=== PATIENT | male | born 1965 | race African-American/Black ===

== ENCOUNTER 2016-07-23 05:56 | Inpatient (IN) | payer BC ==
--- NOTE | 2016-07-22 09:24 | HP ---
[facility]ellite [facility] - Chief Complaint Chief Complaint: left hip pain - Past Medical History Allergies/Adverse Reactions: Allergies Allergy/AdvReac Type Severity Reaction Status Date / Time No Known Drug Allergies Allergy Verified 11/21/15 18:15 - Current Medications Current Medications: Home Medications Medication Instructions Recorded Celecoxib [Celebrex] 50 mg PO PRN PRN 11/21/15 Olmesartan/Hydrochlorothiazide 1 each PO DAILY 11/21/15 [Benicar Hct 40-25 mg Tablet] Hydrocodone Bit/Acetaminophen 1 tab PO Q6H PRN 07/19/16 [Vicodin 5/300 mg -] Satellite Physical Exam - Physical Examination General Appearance: Well Nourished, Well Developed, Alert & Oriented x3 ENT: Clear Lung: Normal air movement Heart: Regular rate & rhythm Extremities: Other (left hip- +ttp, decr rom, nvi xrays show severe hip djd) Neurological: Intact, Alert, Oriented Satellite Impression/Plan - Impression/Plan Impression: left hip djd Operative Procedure: left vicente thr Date to be Performed: 07/23/16
[2016-07-23] MEDS ORDERED: MIDAZOLAM HCL 2 MG/2 ML SINGLE DOSE VIAL ONE (06:29)
[2016-07-23] MEDS ORDERED: DEXAMETHASONE SOD PHOSPHATE/PF 10 MG/ML SDV ONE (06:29)
[2016-07-23] MEDS ORDERED: ROPIVACAINE HCL 0.5% 30ML VIAL ONE (06:30)
[2016-07-23] MEDS ORDERED: CELECOXIB 200 MG CAPSULE PO ONE (06:31)
[2016-07-23] MEDS ORDERED: GABAPENTIN 300 MG CAPSULE (FP) PO ONE (06:31)
[2016-07-23] MEDS ORDERED: TRANEXAMIC ACID 1000 MG/10 ML VIAL IVPUSH ONE (06:31)
[2016-07-23] MEDS ORDERED: oxyCODONE HCL 10 MG SUSTAINED ACTING TABLET PO ONE (06:31)
[2016-07-23] MEDS ORDERED: CEFAZOLIN 2 GM in DEXTROSE 5%-WATER - 50 ML IVPB ONE (06:31)
[2016-07-23 06:59] VITALS: BMI 30.3
[2016-07-23] MEDS ORDERED: ceFAZolin SODIUM 1 GM VIAL ONE (07:09)
[2016-07-23] MEDS ORDERED: VANCOMYCIN 1,000 MG VIAL (RESTRICTED TO ID ONLY) ONE (07:10)
[2016-07-23] MEDS ORDERED: ePHEDrine SULFATE 50 MG/1 ML AMPULE ONE (07:35)
[2016-07-23] MEDS ORDERED: SUCCINYLCHOLINE CHLORIDE 200 MG/10 ML VIAL ONE (07:36)
[2016-07-23] MEDS ORDERED: PROPOFOL 20 ML ONE ×6 (07:36)
[2016-07-23] MEDS ORDERED: BUPIVACAINE HCL/PF 0.5% (5MG/ML) 10 ML VIAL ONE (07:39)
[2016-07-23] MEDS ORDERED: VANCOMYCIN 1,000 MG VIAL (RESTRICTED TO ID ONLY) IVPB ONE (09:15)
--- NOTE | 2016-07-23 09:41 | OP ---
Operative Note - Note: Operative Date: 07/23/16 (marielle) Pre-Operative Diagnosis: left hip djd Operation: left vicente thr Post-Operative Diagnosis: Same as Pre-op Surgeon: Angelo Correia Director Of Strategic Communications: Burton Daily) Anesthesiologist/COUNTER STACKER: Ambrocio Ravi Anesthesia: Spinal, Local Specimens Removed: femoral head Estimated Blood Loss (mls): 100 Operative Report Dictated: Yes
[2016-07-23] MEDS ORDERED: PATIENT'S OWN MEDICATION (NON-FORMULARY) (Olmesartan/Hydrochlorothiazide [Benicar Hct 40-2 PO SCH (10:00)
[2016-07-23] MEDS ORDERED: PANTOPRAZOLE 40 MG TABLET (FP) PO SCH (10:00)
[2016-07-23] MEDS ORDERED: MULTIVITAMINS (DAILY MVI) TABLET (FP) PO SCH (10:00)
[2016-07-23 11:05] LABS: HIV 1 & 2 AB NEGATIVE; HIV 1 AGp24 NEGATIVE
[2016-07-23] MEDS ORDERED: MAG HYDROX/AL HYDROX/SIMETH 30 ML UNIT-DOSE CUP PO PRN (11:17)
[2016-07-23] MEDS ORDERED: MAGNESIUM HYDROX 2400MG/30ML ORAL SUSPENSION 30 ML CUP PO PRN (11:21)
[2016-07-23] MEDS ORDERED: ONDANSETRON 4 MG/2 ML VIAL IVPB PRN (11:22)
[2016-07-23] MEDS ORDERED: LACTATED RINGERS SOLUTION 1,000 ML IV SCH (11:30)
[2016-07-23] MEDS ORDERED: oxyCODONE HCL 5 MG TABLET PO PRN (11:34)
[2016-07-23] MEDS: oxyCODONE HCL 5 MG TABLET PO PRN ×3 (14:53→19:48)
[2016-07-23] MEDS: ACETAMINOPHEN 325 MG TABLET (FP) PO SCH ×2 (15:46→19:48)
[2016-07-23] MEDS: CEFAZOLIN 2 GM/D5W 50 ML IVPB SCH (15:46)
[2016-07-23] MEDS: SENNOSIDES/DOCUSATE COMBO (SENNA PLUS) TABLET (UD) PO SCH (22:01)
[2016-07-23] MEDS: oxyCODONE HCL 10 MG SUSTAINED ACTING TABLET PO SCH (22:02)
[2016-07-23] MEDS: GABAPENTIN 300 MG CAPSULE (FP) PO SCH (22:02)
[2016-07-24] MEDS: CEFAZOLIN 2 GM/D5W 50 ML IVPB SCH (00:15)
[2016-07-24] MEDS: ACETAMINOPHEN 325 MG TABLET (FP) PO SCH ×2 (02:59→09:16)
[2016-07-24] MEDS: oxyCODONE HCL 5 MG TABLET PO PRN (03:13)
[2016-07-24 06:39] VITALS: BP 137/84; PULSE 82; TEMP 98
[2016-07-24] MEDS ORDERED: ASPIRIN 325 MG TABLET PO SCH (08:00)
--- NOTE | 2016-07-24 08:04 | PN ---
Progress Note (short form) - Note Progress Note: Ortho Pt seen and examined s/p left vicente thr pod #1 Selected Entries 07/24/16 06:38 Temperature 98.0 F Pulse Rate 82 Respiratory 19 Rate Blood Pressure 137/84 dressing c/d/i, calf soft, nt nvi cbc pending a/p PT dvt ppx pain control d/c home today f/u in 1 week
--- NOTE | 2016-07-24 08:05 | DS ---
Physical Examination Vital Signs: Vital Signs Temperature 98.0 F 07/24/16 06:38 Pulse Rate 82 07/24/16 06:38 Respiratory Rate 19 07/24/16 06:38 Blood Pressure 137/84 07/24/16 06:38 O2 Sat by Pulse Oximetry (%) 96 07/23/16 22:57 Discharge Summary Reason For Visit: LEFT HIP OSTEOARTHRITIS Procedures: Principal: s/p left vicente thr Hospital Course: admitted for elective left vicente thr, uneventful post-op, stable for d/c Condition: Good - Instructions Diet, Activity, Other Instructions: Post-op Instructions-Total Hip Replacement Call the office for a follow-up appointment in 1 week - [phone] Aspirin 325mg daily for 6 weeks. Pain medication was sent into your pharmacy. Apply Graduated Compression Stockings (TEDs) to both lower extremities- remove daily for hygiene ONLY Apply Sequential Compression Device (SCDs) to both Lower extremities remove for PT and hygiene ONLY Apply cold packs to affected area for 15 minutes every 2 hours. Physical Therapist will come to your home for the first 5 days. You will be set up with outpatient PT at your first post-operative visit. Patient may ambulate as tolerated-encourage self care (at least every 2-3 hours while awake) with walker or cane Maintain Aquacel (waterproof) dressing to operative wound (will be removed by surgeon at first office visit) Shower with Aquacel dressing in place-if Aquacel integrity compromised, remove and apply dry sterile dressing and notify Orthopedist. DO NOT SHOWER unless Orthopedists approves without Aquacel dressing CONTACT THE OFFICE FOR ANY CHANGE IN YOUR CONDITION (for example-fever greater than 102 degrees,excessive bleeding from operative site, purulent drainage, severe swelling or pain) GO TO THE EMERGENCY ROOM IF THERE IS A MEDICAL EMERGENCY Hip Precautions: * Keep a rolled towel under affected heel while in bed or chair (to keep knee in extension) * Dependent upon approach: * Posterior - do not cross legs; do not sit on low chairs or toilets. * If you have any questions, please do not hesitate to call the office - [phone]. Referrals: Burton Daily MD [Staff Physician] - Disposition: VNS/HOME HEALTH CARE - Home Medications Comprehensive Discharge Medication List: Ambulatory Orders Celecoxib [Celebrex] 50 mg PO PRN PRN 06/07/16 Olmesartan/Hydrochlorothiazide [Benicar Hct 40-25 mg Tablet] 1 each PO DAILY 12/29 Aspirin [ASA -] 325 mg PO DAILY@0800 tablet 07/23/16 Oxycodone HCl/Acetaminophen [Percocet 5-325 mg Tablet -] 1 - 2 tab PO Q6H #50 tab MDD 8 07/23/16
[2016-07-24 08:16] LABS: MCH 28.2 pg (25.7-33.7); MCHC 32.2 g/dl (32.0-35.9); MEAN CELL VOLUME 87.4 fl (80-96); MEAN PLT VOLUME 7.3 fl (7.5-11.1); PLATELET COUNT 187 K/MM3 (134-434); RDW 12.8 % (11.9-15.9); WHITE BLOOD COUNT 9.6 K/mm3 (4.0-10.0)
[2016-07-24 08:36] LABS: CALCIUM 8.6 mg/dl (8.4-10.2)
[2016-07-24] MEDS: GABAPENTIN 300 MG CAPSULE (FP) PO SCH (09:15)
[2016-07-24] MEDS: SENNOSIDES/DOCUSATE COMBO (SENNA PLUS) TABLET (UD) PO SCH (09:15)
[2016-07-24] MEDS: oxyCODONE HCL 10 MG SUSTAINED ACTING TABLET PO SCH (09:20)
[2016-07-24] MEDS ORDERED: VALSARTAN 160 MG TABLET (UD) PO SCH (10:00)
[2016-07-24] MEDS ORDERED: HYDROCHLOROTHIAZIDE 25 MG TABLET (FP) PO SCH (10:00)
--- NOTE | 2016-07-24 11:18 | SPEC ---
DATE OF SURGERY: 07/23/2016 PREOPERATIVE DIAGNOSIS: Degenerative Joint Disease, Left Hip POSTOPERATIVE DIAGNOSIS: Degenerative Joint disease, Left Hip PROCEDURE: Left Total Hip Replacement with Robotic Arm Navigation Assistance (Makoplasty) SURGEON: Dr. Angelo Correia VEGETABLE HARVEST MACHINE OPERATOR: ERNESTINE Middleton BUSINESS ASST: Dr. Burton Daily ANESTHESIA: Spinal and regional. ANESTHESIOLOGIST: CLOSURE: Rafiq components with a No. 58 tritanium acetabulum with a 10-degree lip polyethylene insert that accepts a 36 mm head, a No. 7 Accolade 2 femoral stem with a +0 36 mm ceramic head, No. 1 Vicryl for fascia, 0 and 2-0 subcutaneous, 3-0 Monocryl subcuticular for skin ESTIMATED BLOOD LOSS: Less Than 100 mL. COMPLICATIONS: None. CONDITION: To recovery room in stable condition. DESCRIPTION OF OPERATIVE PROCEDURE: The patient was taken to the operating room. Spinal anesthesia as well as sciatic block was administered by the anesthesiologist. The IV Kefzol and TXA were administered prophylactically prior to the case. The patient was placed in the lateral decubitus position with all prominences well-padded. An EKG pad was secured to the inferior pole of the patella for limb length calculations intraoperatively. The left hip area was prepped and draped in the usual sterile fashion. A 12.0-15.0 cm curved longitudinal incision over the posterolateral aspect of the greater trochanter was made. Hemostasis was achieved with Bovie cautery. Sharp dissection was carried down to the level of the fascia. The fascia was opened the entire length of the incision, spreading the gluteus elke fibers in the direction of their origin. A Charnley retractor was placed in this layer, and care was taken to be far away from the sciatic nerve. The short external rotators were detached off the insertion of the greater trochanter and peeled off the capsule. A posterior capsulectomy was then performed. A checkpoint was malleted into the greater trochanter. Three small stab incisions were done on the iliac crest. Through these stab incisions, threaded guide pins were drilled into the iliac crest. These pins were fastened to the Navigation array. The check point on the greater trochanter, and the EKG pad on the inferior pole of the patella were used to measure preoperative limb length and offset. The hip was then dislocated. The hip was osteotomized at the appropriate level as directed by the preoperative template. Anterior and posterior retractors were placed around the acetabulum. Circumferential labrum was excised. A checkpoint was malleted into the acetabulum superiorly. The acetabulum was then registered with the Navigation device with multiple sites within the acetabulum and around the rim of the acetabulum. I t was then confirmed popping the blue bubbles, confirming ideal position and confirmation of adequate registration with the Navigation device. Using a 48 reamer, which was decided preoperatively on the preoperative template, the robotic arm was brought into the field and was used to ream the acetabulum down to the appropriate depth with the appropriate orientation and inversion applied. After reaming, a good hemispherical bleeding surface was encountered in the acetabulum. A RAFIQ shell of the appropriate size was then malleted into place achieving excellent fit. Confirmation of the appropriate orientation and inversion was confirmed using the probe, and assuring that the acetabular cup was placed in the ideal position as templated preoperatively. A real liner was then clipped into place with a 10 degree lip in the posterior-superior quadrant. Anterior and posterior osteophytes were removed using osteotome. Next, our attention was directed to the femur. The proximal femur was opened with a box chisel, rat-tail, anchovy and serial reamers. This was done until the appropriate reamer achieved good fit and fill of the proximal femur. A trial reduction with the appropriate neck and head, as again measured from our preoperative template, was performed. Limb lengths were confirmed both visually and using the Navigation device, again measuring the inferior pole of the patella and the checkpoint of the greater trochanter. This confirmed ideal position of the femoral component, lengths and offset. The trial components were removed. The real component was malleted into place. The head was cold-welded to the Charnley and the hip was reduced. Again, the hip was found to have equal limb lengths as described previously. The hip was also taken through a range of motion and found to be stable in external rotation and extension, was stable in marked flexion, stable in adduction and internal rotation, and had a positive hang test and negative telescoping. The hip was irrigated with copious amounts of irrigation. Hemostasis was achieved. Vancomycin powder was sprinkled into the joint. A second dose of TXA was administered. The fascia was closed with No. 1 Vicryl interrupted suture, 0 and 2-0 for subcutaneous, and 3-0 Monocryl subcuticular for skin with skin glue. This was followed by an Aquacel dressing. The patient was flipped into the supine position. Bilateral SCDs and an abduction pillow were applied. X-rays showed good position of the components. The patient was awakened from anesthesia and transferred to the recovery room in stable condition. COMPLICATIONS: None. ESTIMATED BLOOD LOSS: Less than 100 mL. Jani PETTY/[id number]
--- NOTE | 2016-07-25 16:49 | PATH ---
Surgical Pathology Report Patient Name: ANGELO HOWELL Med. Rec. #: [id number] /Age/Gender: 1965 (Age: 51) / M Account: [id number] Location: [facility] MED-SURG Taken: 07/23/2016 Received: 07/23/2016 Reported: 07/25/2016 Physicians: Angelo Correia M.D. Specimen(s) Received LEFT FEMORAL HEAD Clinical History Left hip osteoarthritis Final Diagnosis BONE, LEFT FEMORAL HEAD, REPLACEMENT: DEGENERATIVE JOINT DISEASE. Electronically Signed Chris Moran M.D. Gross Description Received in formalin, labeled "left femoral head," is a 5.4 x 5.4 x 5.0 cm. femoral head with a 1 cm in length portion of femoral leg attached. The margin of resection is smooth. There is a 3.2 cm in greatest dimension area of eburnation present. The remaining articular surface is gaston-yellow and diffusely nodular and granular. The underlying trabecular bone is yellow and hard. A provider service representative section is submitted in one cassette, following decalcification. 07/24/201607/24/2016
== END 2016-07-24 11:20 | disposition home health service (06) | DRG 470 ==
LOC: FM/S 05:56
PROVIDERS: ADMIT Orthopaedic Surgery; ATTEND Orthopaedic Surgery
PROC: 8E0YXCZ Robotic Assisted Procedure of Lower Extremity (ICD-10-PCS; 2016-07-23)
PROC: 0SRB02A Replacement of Left Hip Joint with Metal on Polyethylene Synthetic Substitute, Uncemented, Open Approach (ICD-10-PCS; principal; 2016-07-23 08:30)
DX: M16.12 Unilateral primary osteoarthritis, left hip (principal); I10 Essential (primary) hypertension; F17.210 Nicotine dependence, cigarettes, uncomplicated
CPT/HCPCS: 36415; 73523-TC; 80048; 85027; 87389; 88304-TC; 88311-TC; 94010; 94760; 97116-GP; 97162-PG

== ENCOUNTER 2022-01-11 14:29 | Emergency (ER) | payer BC ==
[2022-01-11 14:52] VITALS: BP 137/87; PULSE 75; RESP 16; TEMP 98.2; BMI 28.8
[2022-01-11 15:37] LABS: EPI CELLS 3 /uL (0-25.1); HYALINE CASTS 1 /uL (0-3.1); PH,URINE 5.5 (5.0-8.0); URINE APPEARANCE CLEAR; URINE BACTERIA 2 /uL (0-1359); URINE BILIRUBIN NEGATIVE (NEGATIVE); URINE COLOR YELLOW; URINE GLUCOSE (UA) NEGATIVE (NEGATIVE); URINE KETONE NEGATIVE (NEGATIVE); URINE LEUK ESTERASE NEGATIVE (NEGATIVE); URINE NITRITE NEGATIVE (NEGATIVE); URINE PROTEIN NEGATIVE (NEGATIVE); URINE RBC 101 /uL (0-23.9); URINE UROBILINOGEN 0.2 mg/dL (0.2-1.0); URINE WBC 14 /uL (0-25.8)
[2022-01-11 18:04] LABS: BASO % 0.5 % (0-2.0); HEMATOCRIT 46.3 % (35.4-49); HEMOGLOBIN 15.8 GM/dL (11.7-16.9); LYMPH % 46.5 % (8-40); MCHC 34.2 g/dl (32.0-35.9); MEAN CELL VOLUME 84.8 fl (80-96); MEAN PLT VOLUME 6.7 fl (7.5-11.1); MONO % 11.3 % (3.8-10.2); NEUT % 40.7 % (42.8-82.8); PLATELET COUNT 259 10^3/uL (134-434); RBC 5.45 M/mm3 (4.00-5.60); RDW 13.7 % (11.9-15.9); WHITE BLOOD COUNT 4.2 K/mm3 (4.0-10.0)
[2022-01-11 18:41] LABS: CALCIUM 9.2 mg/dL (8.5-10.1)
[2022-01-11 18:42] LABS: ALBUMIN 3.9 g/dl (3.4-5.0); BLOOD UREA NITROGEN 12.9 mg/dL (7-18)
[2022-01-11 18:45] LABS: CREATININE 1.3 mg/dL (0.55-1.3)
[2022-01-11 18:46] LABS: BILIRUBIN,TOTAL 0.6 mg/dL (0.2-1); TOT PROT 7.2 g/dl (6.4-8.2)
== END 2022-01-11 19:34 | disposition home or self-care (01) ==
LOC: JER 14:29
DX: R33.9 Retention of urine, unspecified (principal)
CPT/HCPCS: 36415; 76775-TC; 76856-TC; 80053; 81003; 85025; 87086; 99285-25

== ENCOUNTER 2022-01-23 01:51 | Emergency (ER) | payer BC ==
[2022-01-23 02:13] VITALS: BP 159/92; PULSE 88; RESP 17; TEMP 98.4; BMI 28.8
== END 2022-01-23 02:31 | disposition home or self-care (01) ==
LOC: JER 01:51
DX: R33.9 Retention of urine, unspecified (principal)
CPT/HCPCS: 99283-25

== ENCOUNTER 2022-02-05 06:28 | Emergency (ER) | payer BC ==
[2022-02-05 06:48] VITALS: BP 132/91; PULSE 68; RESP 16; TEMP 98.4; BMI 28.8
[2022-02-05 08:16] LABS: BASO % 0.7 % (0-2.0); HEMATOCRIT 45.5 % (35.4-49); HEMOGLOBIN 15.5 GM/dL (11.7-16.9); LYMPH % 49.5 % (8-40); MEAN CELL VOLUME 85.5 fl (80-96); MONO % 11.7 % (3.8-10.2); NEUT % 35.1 % (42.8-82.8); PLATELET COUNT 223 10^3/uL (134-434); RBC 5.32 M/mm3 (4.00-5.60); RDW 13.6 % (11.9-15.9); WHITE BLOOD COUNT 4.4 K/mm3 (4.0-10.0)
[2022-02-05 08:21] LABS: URINE APPEARANCE CLOUDY; URINE BILIRUBIN NEGATIVE (NEGATIVE); URINE COLOR YELLOW; URINE GLUCOSE (UA) NEGATIVE (NEGATIVE); URINE KETONE NEGATIVE (NEGATIVE)
[2022-02-05 08:22] LABS: EPI CELLS 68 /uL (0-25.1); HYALINE CASTS 39 /uL (0-3.1); PH,URINE 6.5 (5.0-8.0); URINE BACTERIA 48 /uL (0-1359); URINE LEUK ESTERASE NEGATIVE (NEGATIVE); URINE NITRITE NEGATIVE (NEGATIVE); URINE PROTEIN 2+ (NEGATIVE); URINE RBC 7 /uL (0-23.9); URINE UROBILINOGEN 0.2 mg/dL (0.2-1.0); URINE WBC 16 /uL (0-25.8)
[2022-02-05 08:43] LABS: ALBUMIN 4.2 g/dl (3.4-5.0); BLOOD UREA NITROGEN 10.1 mg/dL (7-18); CALCIUM 8.8 mg/dL (8.5-10.1)
[2022-02-05 08:46] LABS: CREATININE 1.1 mg/dL (0.55-1.3)
[2022-02-05 08:48] LABS: BILIRUBIN,TOTAL 0.6 mg/dL (0.2-1); TOT PROT 7.1 g/dl (6.4-8.2)
== END 2022-02-05 09:53 | disposition home or self-care (01) ==
LOC: JER 06:28
DX: R33.9 Retention of urine, unspecified (principal)
CPT/HCPCS: 36415; 76856-TC; 80053; 81003; 85025; 87086; 99284-25

== ENCOUNTER 2023-02-13 04:32 | Day surgery (SDC) | payer BC ==
[2023-02-11 11:24] VITALS: BMI 30.7
[2023-02-13 11:45] VITALS: TEMP 97.8
[2023-02-13 12:01] VITALS: BP 108/73; PULSE 65; RESP 18
== END 2023-02-13 12:10 | disposition home or self-care (01) ==
LOC: JASU-ENDO 04:32
PROVIDERS: ATTEND Internal Medicine Gastroenterology
PROC: 0DBL8ZX Excision of Transverse Colon, Via Natural or Artificial Opening Endoscopic, Diagnostic (ICD-10-PCS; principal; 2023-02-13 10:00)
DX: Z12.11 Encounter for screening for malignant neoplasm of colon (principal); D12.3 Benign neoplasm of transverse colon
CPT/HCPCS: 88305-TC